=== PATIENT | female | born 1970 | race Caucasian/White ===

== ENCOUNTER 2019-01-07 13:28 | Emergency (ER) | payer MEDICAID ==
[2019-01-07] MEDS ORDERED: DECADRON 10MG INJ. IM ONE (13:57)
[2019-01-07] MEDS ORDERED: DECADRON 10MG INJ. ONE (14:03)
--- NOTE | 2019-01-07 14:33 | XRAY ---
Indication: Cough, ingestion, short of breath 1 week. Comparison: None PA/lateral chest demonstrates 4 cm round opacity projecting right upper quadrant abdomen with no corresponding abnormality on the lateral view presumed external. No focal infiltrate, consolidation, or large effusion. Heart and mediastinal structures within normal limits. Bony thorax intact. Impression: Nonacute chest.
[2019-01-07] MEDS ORDERED: DUONEB 0.5-3 MG/3 ml Neb IH ONE ×2 (15:09→15:18)
--- NOTE | 2019-01-07 15:20 | ERPHSYRPT ---
- History of Present Illness Time Seen by Provider: 01/07/19 14:45 Source: patient Exam Limitations: no limitations Patient Subjective Stated Complaint: Pt states "I have been coughing for a week and am taking over the counter stuff and nothing is helping. Now my throat hurts and my head hurts." Triage Nursing Assessment: Pt presnted through the front, alert and oriented X 3 , skin pwd Pt ambulates with an upright steady gait, able to speak in clear full sentences pt coughing intermittantly, rhonchi audible heard upon inspiration and expiration Physician History: 2 Days worsening shortness of air; started a week or so ago around campfire smoke. Had some diarrhea yesterday. Allergies/Adverse Reactions: cephalexin [From Keflex] Allergy (Severe, Verified 01/07/19 13:48) Swelling Penicillins Allergy (Severe, Verified 01/07/19 13:48) Swelling Hx Tetanus, Diphtheria Vaccination/Date Given: No Hx Influenza Vaccination/Date Given: No Hx Pneumococcal Vaccination/Date Given: No Immunizations Up to Date: Yes - Review of Systems Constitutional: Malaise - Past Medical History Pertinent Past Medical History: Yes Neurological History: Migraines ENT History: No Pertinent History Cardiac History: No Pertinent History Respiratory History: No Pertinent History Endocrine Medical History: No Pertinent History Musculoskeletal History: No Pertinent History GI Medical History: No Pertinent History History: No Pertinent History Psycho-Social History: Depression Female Reproductive Disorders: No Pertinent History - Past Surgical History Past Surgical History: Yes Other Surgical History: c section - Social History Smoking Status: Current every day smoker How long have you smoked: years Exposure to second hand smoke: Yes Drug Use: marijuana Patient Lives Alone: No - Female History Hx Last Menstrual Period: 2007 Hx Now: No - Nursing Vital Signs Nursing Vital Signs: Initial Vital Signs Temperature 98.3 F 01/07/19 13:41 Pulse Rate 88 01/07/19 13:41 Respiratory Rate 22 01/07/19 13:41 Blood Pressure 130/88 01/07/19 13:41 O2 Sat by Pulse Oximetry 96 01/07/19 13:41 Pain Scale Pain Intensity 0 - Physical Exam General Appearance: mild distress (Cough, congestion) Eye Exam: PERRL/EOMI Ears, Nose, Throat Exam: normal pharynx Neck Exam: normal inspection, supple, full range of motion Respiratory Exam: diminished breath sounds, wheezing (mild bilateral) Cardiovascular/Chest Exam: normal heart sounds, regular rate/rhythm, normal peripheral pulses Abdominal/Gastrointestinal Exam: soft, normal bowel sounds (hyperactive) Extremity Exam: non-tender, normal range of motion, normal inspection, no pedal edema Neurologic Exam: alert, oriented x 3, cooperative, normal mood/affect, nml cerebellar function Skin Exam: normal color, warm, dry SpO2 Interpretation: normal SpO2: 95 O2 Delivery: Room Air - Course Nursing assessment & vital signs reviewed: Yes Ordered Tests: Active Orders 24 hr Category Date Time Status CHEST 2 VIEWS (PA AND LAT) Stat Exams 01/07/19 14:14 Completed Respiratory Therapy Assessment DAILY RT 01/08/19 07:00 Completed Medication Summary Discontinued Medications Generic Name Dose Route Start Last Admin Trade Name Freq PRN Reason Stop Dose Admin Albuterol/Ipratropium 3 ml 01/07/19 15:09 01/07/19 15:20 Duoneb 0.5-3 Mg/3 Ml Neb IH 01/07/19 15:10 3 ml STAT ONE Administration Albuterol/Ipratropium Confirm 01/07/19 15:18 Duoneb 0.5-3 Mg/3 Ml Neb Administered 01/07/19 15:19 Dose 3 ml IH .STK-MED ONE Dexamethasone Sodium Phosphate 8 mg 01/07/19 13:57 01/07/19 14:05 Decadron 10mg Inj. IM 01/07/19 13:58 8 mg STAT ONE Administration Dexamethasone Sodium Phosphate Confirm 01/07/19 14:03 Decadron 10mg Inj. Administered 01/07/19 14:04 Dose 10 mg .ROUTE .STK-MED ONE - Progress Progress: improved, re-examined (CTA; feels better - wants something to eat - has had nothing since 6 AM) - Departure Departure Disposition: Home Clinical Impression: Short of breath on exertion Condition: Stable Critical Care Time: No Referrals: DOCTOR,NO FAMILY [Primary Care Provider] - Additional Instructions: Use MDI (inhailer) at home as prescribed. Take prednisone (5 days) and Antibiotic as prescribed. Follow up with primary care provider as needed or if not better by the end of the week. Prescriptions: Albuterol 8 gm Mdi Hfa [Ventolin Hfa MDI] 8 gm IH Q4-6HPRN PRN #1 [email or web address] PRN Reason: Shortness Of Breath/Wheezing Azithromycin [Zithromax] 500 mg PO DAILY #3 tablet Prednisone 40 mg PO DAILY 5 Days #10 tablet
[2019-01-07 15:58] VITALS: O2SAT 95
[2019-01-07 16:16] VITALS: BP 106/70; PULSE 81
== END 2019-01-07 16:26 | disposition home or self-care (01) ==
LOC: ED 13:28
DX: R06.02 Shortness of breath (principal)
CPT/HCPCS: 71046; 94640; 96372; 99284; J1100; A9270-GY